=== PATIENT | female | born 1990 | race Caucasian/White ===

== ENCOUNTER 2017-04-17 12:11 | Emergency (ER) | payer BC ==
[~2017-04-17] VITALS: Ht 167.6 cm; Wt 67.0 kg
[~2017-04-17 12:11] MED LIST: IBUP-1542 PO
[2017-04-17 12:13] VITALS: Ht 167.6 cm; Wt 67.0 kg
[2017-04-17] MEDS ORDERED: LIDOCAINE 1% (MDV) 20 ML INJ SC ONE (13:00)
[2017-04-17] MEDS ORDERED: DIPHTH/TET/ACEL PERTUSS (ADULT) 0.5 ML VIAL IM* ONE (13:00)
[2017-04-17] MEDS ORDERED: IBUP-1542 PO (14:14)
[2017-04-17] MEDS ORDERED: CEPH-443 PO (14:15)
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
== END 2017-04-17 14:45 | disposition home or self-care (01) ==
LOC: FTE 12:11
DX: S71.112A Laceration without foreign body, left thigh, initial encounter (principal); F12.10 Cannabis abuse, uncomplicated; W26.0XXA Contact with knife, initial encounter; Y92.9 Unspecified place or not applicable; Z23 Encounter for immunization
CPT/HCPCS: 12001; 90471; 90715; 99283; Z7610

== ENCOUNTER 2017-04-18 12:01 | Emergency (ER) | payer BC ==
[~2017-04-18] VITALS: Ht 167.6 cm; Wt 86.0 kg
[~2017-04-18 12:01] MED LIST changes: +CEPH-443 PO
[2017-04-18 12:18] VITALS: Ht 167.6 cm; Wt 86.0 kg
--- NOTE | 2017-04-18 12:54 | ERD ---
ER Documentation Chief Complaint Date/Time DATE: 04/18/17 TIME: 12:52 Chief Complaint left leg wound, would like recheck HPI Patient is a 26-year-old female who was here yesterday for a laceration and is here today for a wound check. She states she has had small amount of blood still oozing from it and she wants to make sure that her wound is not open and infected. She has no other complaints. ROS All systems reviewed and are negative except as per history of present illness. Medications Home Meds Active Scripts Cephalexin* (Keflex*) 500 Mg Capsule, 500 MG PO QID for 7 Days, CAP Prov:SARTHAK MONTIEL PA-C 04/17/17 Ibuprofen* (Motrin*) 600 Mg Tab, 600 MG PO Q6, #30 TAB Prov:SARTHAK MONTIEL-Therese 04/17/17 Ibuprofen* (Motrin*) 600 Mg Tab, 600 MG PO Q6, #30 TAB Prov:ESAU ESCALERA 02/28/16 Allergies Allergies: Coded Allergies: No Known Allergy (Unverified , 07/06/15) PMhx/Soc History of Surgery: Yes (FAT TRANSFERRED FROM ABDOMEN TO BUTTOCKS) Anesthesia Reaction: No Hx Neurological Disorder: No Hx Respiratory Disorders: No Hx Cardiac Disorders: No Hx Psychiatric Problems: No Hx Miscellaneous Medical Probl: No Hx Alcohol Use: No Hx Substance Use: Yes (MARIJUANA) Hx Tobacco Use: No FmHx Family History: No diabetes Physical Exam Vitals Vital Signs Date Time Temp Pulse Resp B/P Pulse Ox O2 Delivery O2 Flow Rate FiO2 04/18/17 12:18 98.7 90 18 124/65 97 Physical Exam Const: [] Head: Atraumatic Eyes: Normal Conjunctiva ENT: Normal External Ears, Nose and Mouth. Neck: Full range of motion..~ No meningismus. Resp: Clear to auscultation bilaterally Cardio: Regular rate and rhythm, no murmurs Abd: Soft, non tender, non distended. Normal bowel sounds Skin: Healing laceration left lateral thigh with one suture in place, no surrounding erythema or edema, no bleeding or drainage Procedures/MDM Patient here with healing laceration. No evidence of infection. I instructed the patient to continue keeping it clean and dry. Patient counseled regarding my diagnostic impression and care plan. Prior to discharge all questions answered. Pt agrees with treatment plan and understands strict return precautions. Pt is instructed to follow up with primary care provider within 24- 48 hours. Precautionary instructions provided including instructions to return to the ER if not improving or for any worsening or changing symptoms or concerns. Departure Diagnosis: Primary Impression: Encounter for wound re-check Condition: Stable Patient Instructions: Wound Check, Lac F/U (No Infection) Additional Instructions: Call your primary care doctor TOMORROW for an appointment during the next 1-2 days.See the doctor sooner or return here if your condition worsens before your appointment time. IAIN KAPLAN PA-C Apr 18, 2017 12:54
== END 2017-04-18 13:05 | disposition left against medical advice (07) ==
LOC: FTE 12:01
DX: Z48.01 Encounter for change or removal of surgical wound dressing (principal)
CPT/HCPCS: 99281

== ENCOUNTER 2017-04-20 11:46 | Emergency (ER) | payer BC ==
[~2017-04-20] VITALS: Ht 167.6 cm; Wt 88.5 kg
[2017-04-20 12:04] VITALS: Ht 167.6 cm; Wt 88.5 kg
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
== END 2017-04-20 12:54 | disposition home or self-care (01) ==
LOC: FTE 11:46
DX: Z48.01 Encounter for change or removal of surgical wound dressing (principal); R40.2412 Glasgow coma scale score 13-15, at arrival to emergency department
CPT/HCPCS: 99281

== ENCOUNTER 2017-04-27 13:27 | Emergency (ER) | payer BC ==
[~2017-04-27] VITALS: Ht 167.6 cm; Wt 86.5 kg
[2017-04-27 13:38] VITALS: Ht 167.6 cm; Wt 86.5 kg
--- NOTE | 2017-04-27 14:25 | ERD ---
ER Documentation Chief Complaint Date/Time DATE: 04/27/17 TIME: 14:21 Chief Complaint Patient here for a suture removal HPI This is a 27-year-old female presents to the ER for suture removal. Patient had one simple interrupted suture to her left leg. Patient denies any fevers or chills. She denies any discharge from her leg. ROS 12 point review of systems was done, all negative except per HPI. Medications Home Meds Active Scripts Cephalexin* (Keflex*) 500 Mg Capsule, 500 MG PO QID for 7 Days, CAP Prov:SARTHAK MONTIEL PA-C 04/17/17 Ibuprofen* (Motrin*) 600 Mg Tab, 600 MG PO Q6, #30 TAB Prov:SARTHAK MONTIEL PA-C 04/17/17 Ibuprofen* (Motrin*) 600 Mg Tab, 600 MG PO Q6, #30 TAB Prov:ESAU ESCALERA 02/28/16 Allergies Allergies: Coded Allergies: No Known Allergy (Unverified , 04/20/17) PMhx/Soc History of Surgery: Yes (FAT TRANSFERRED FROM ABDOMEN TO BUTTOCKS) Anesthesia Reaction: No Hx Neurological Disorder: No Hx Respiratory Disorders: No Hx Cardiac Disorders: No Hx Psychiatric Problems: No Hx Miscellaneous Medical Probl: No Hx Alcohol Use: No Hx Substance Use: Yes (MARIJUANA) Hx Tobacco Use: No Physical Exam Vitals Vital Signs Date Time Temp Pulse Resp B/P Pulse Ox O2 Delivery O2 Flow Rate FiO2 04/27/17 13:38 99.0 105 20 119/73 99 Physical Exam GENERAL: The patient is well developed and appropriate for usual state of health , in no apparent distress. patient appears high and smells like marijuana HEENT: Atraumatic. CHEST: Clear to auscultation bilaterally. There are no rales, wheezes or rhonchi. HEART: Regular rate and rhythm. No murmurs, clicks, rubs or gallops. NEURO: Alert and oriented. SKIN: 1 simple interrupted suture with no wound dishiscense discharge or surrounding erythema Procedures/MDM Suture Removal by me: Sutures removed with tweezers and scissors without incident. Wound shows no evidence of infection, foreign body, neurologic injury, vascular injury, open joint or tendon laceration. Patient to follow up PRN. Departure Diagnosis: Primary Impression: Encounter for removal of sutures Condition: Stable Patient Instructions: Suture Removal, No Complication Additional Instructions: Call your primary care doctor TOMORROW for an appointment during the next 1-2 days.See the doctor sooner or return here if your condition worsens before your appointment time. ESAU ESCALERA Apr 27, 2017 14:25
== END 2017-04-27 14:20 | disposition home or self-care (01) ==
LOC: FTE 13:27
DX: Z48.02 Encounter for removal of sutures (principal)
CPT/HCPCS: 99281

== ENCOUNTER 2017-09-21 10:43 | Emergency (ER) | END 2017-09-22 17:41 | disposition home or self-care (01) ==

== ENCOUNTER 2017-10-25 09:54 | Emergency (ER) | END 2017-10-25 16:25 | disposition home or self-care (01) ==

== ENCOUNTER 2017-11-17 11:36 | Emergency (ER) | END 2017-11-17 13:25 | disposition home or self-care (01) ==

== ENCOUNTER 2017-11-24 17:58 | Emergency (ER) | END 2017-11-24 18:28 | disposition left against medical advice (07) ==

== ENCOUNTER 2017-11-25 11:15 | Emergency (ER) | END 2017-11-25 14:58 | disposition home or self-care (01) ==

== ENCOUNTER 2018-12-25 11:35 | Emergency (ER) | payer BC, OTHER ==
[~2018-12-25] VITALS: Ht 172.7 cm; Wt 81.6 kg
[~2018-12-25 11:35] MED LIST changes: +AMOX1TAB10 PO; +CETI10CA PO; +DESL1TBM2 PO; +FLUT16SP17 NASAL; +FLUT9.9S NASAL; +PSEU120T11 PO; +SULF1TAB31 PO
[2018-12-25 11:53] VITALS: BP 109/54; PULSE 68; RESP 18; Ht 172.7 cm; Wt 81.6 kg
[2018-12-25] MEDS ORDERED: FLUORESCEIN STRIP LEFT EYE ONE (12:30)
[2018-12-25] MEDS ORDERED: TETRACAINE 0.5% 4 ML OPH LEFT EYE ONE (12:30)
[2018-12-25] MEDS ORDERED: OFLO5DRO46 LEFT EYE (14:27)
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
== END 2018-12-25 14:50 | disposition home or self-care (01) ==
LOC: FTE 11:35
DX: S05.92XA Unspecified injury of left eye and orbit, initial encounter (principal); W25.XXXA Contact with sharp glass, initial encounter; Y92.9 Unspecified place or not applicable
CPT/HCPCS: 76536; Z7502; Z7610